=== PATIENT | female | born 2000 | race Caucasian/White ===

== ENCOUNTER 2022-05-12 14:49 | Emergency (ER) | payer MEDICAID ==
[~2022-05-12] VITALS: Ht 160 cm; Wt 79.4 kg
[2022-05-12 15:02] VITALS: BP 114/81
[2022-05-12] MEDS ORDERED: PRED20TA5 PO (16:28)
[2022-05-12] MEDS ORDERED: ALBU0.0912 IH (16:28)
[2022-05-12 16:36] VITALS: BP 114/81
== END 2022-05-12 16:36 | disposition home or self-care (01) ==
LOC: MED 14:49
DX: R06.02 Shortness of breath (principal); R05.9 Cough, unspecified; Z79.899 Other long term (current) drug therapy
CPT/HCPCS: 71045; 81025; 99283; Q0092